=== PATIENT | male | born 1955 | race African-American/Black ===

== ENCOUNTER 2017-07-08 09:33 | Inpatient (IN) | payer BC ==
[~2017-07-08] VITALS: Ht 182.9 cm; Wt 148.3 kg
[~2017-07-08 09:33] MED LIST: AMLO5TAB4 PO; ATEN50TA PO
[2017-07-08] MEDS ORDERED: DEXTROSE 50% WATER 50ML SYRINGE IV ONE ×2 (09:46→10:00)
[2017-07-08 10:07] LABS: HEMATOCRIT. 36.5 % (42.0-52.0); HEMOGLOBIN. 11.5 g/dL (14.0-18.0); MEAN PLATELET VOLUME 9.6 fl (7.4-10.4); PLATELET 243 x1000/uL (130-400); RED CELL DISTRIBUTION WIDTH 15.6 % (11.6-14.6)
[2017-07-08 10:13] LABS: CHLORIDE 102 mEq/L (98-107)
[2017-07-08 10:16] LABS: PARTIAL THROMBOPLASTIN TIME 25.6 sec (23.4-31.0); PROTHROMBIN TIME 10.4 sec (9.4-11.6)
[2017-07-08 10:18] LABS: CARBON DIOXIDE 30 mEq/L (21-32)
[2017-07-08 10:24] LABS: TROPONIN I 0.05 ng/mL (0.00-0.04)
[2017-07-08 10:38] LABS: PLATELET ESTIMATE NORMAL
[2017-07-08 10:56] LABS: HEMATOCRIT 34.8 % (42.0-52.0); HEMOGLOBIN 10.9 g/dL (14.0-18.0); MEAN CORPUSCULAR HEMOGLOBIN 27.7 pg (28.0-32.0); MEAN CORPUSCULAR VOLUME 87.8 fL (80.0-94.0); PLATELET 222 x1000/uL (130-400); RED BLOOD CELL COUNT 3.96 mill/uL (4.7-6.1)
[2017-07-08] MEDS ORDERED: DEXTROSE 50% WATER 50ML SYRINGE IV PRN (11:15)
[2017-07-08] MEDS: BLOOD SUGAR DIAGNOSTIC STRIP TEST SCH ×3 (13:24→20:12)
[2017-07-08] MEDS: INSULIN LISPRO 100 UNITS/ML SUBCUT SCH ×3 (13:24→20:13)
[2017-07-08] MEDS: CLONIDINE 0.1MG TABLET PO SCH ×2 (13:24→18:16)
[2017-07-08 13:45] LABS: CLARITY URINE CLEAR (CLEAR); COLOR URINE YELLOW (YELLOW); GLUCOSE URINE 2+ (NEGATIVE); KETONES URINE NEGATIVE (NEGATIVE); LEUKOCYTE ESTERASE URINE 1+ (NEGATIVE); NITRITE URINE NEGATIVE (NEGATIVE); OCCULT BLOOD URINE 2+ (NEGATIVE); PROTEIN URINE 4+ (NEGATIVE); SPECIFIC GRAVITY URINE 1.023 (1.005-1.030); UROBILINOGEN URINE 0.2 E.U./dL (0.2-1.0)
[2017-07-08 14:30] VITALS: BP 152/106
[2017-07-08] MEDS: POLYETHYLENE GLYCOL 3350 (17GM) 1 DOSE PACK PO SCH (16:11)
[2017-07-08] MEDS: SEVELAMER CARBONATE 800 MG TABLET PO SCH ×2 (16:11→18:16)
[2017-07-08] MEDS ORDERED: HEPARIN SODIUM 1,000 UNIT/1ML VIAL IV NR (17:45)
[2017-07-08] MEDS: INSULIN NPH (HUMULIN-N) 100 UNITS/ML 3ML VIAL SUBCUT SCH (17:50)
[2017-07-08] MEDS: BRIMONIDINE 0.2% OPHTH DROPS 5ML BOTHEYE SCH (18:17)
[2017-07-08] MEDS ORDERED: VANCOMYCIN 1 G PREMIX 200 ML IV SCH (19:15)
[2017-07-08] MEDS ORDERED: NPH,100V SQ (19:37)
[2017-07-08] MEDS ORDERED: SEVE800T8 PO (19:37)
[2017-07-08] MEDS ORDERED: CLON0.1T PO (19:37)
[2017-07-08 20:00] VITALS: BP 143/63
[2017-07-08] MEDS ORDERED: ENOXAPARIN 40MG/0.4ML SYR SUBCUT SCH (20:00)
[2017-07-08] MEDS ORDERED: MONTELUKAST SODIUM 10MG TABLET PO SCH (21:00)
[2017-07-08] MEDS ORDERED: ATORVASTATIN CALCIUM 40MG TABLET PO SCH (21:00)
[2017-07-08] MEDS: AMLODIPINE 5MG TABLET PO SCH (21:47)
[2017-07-08] MEDS: PIPERACILLIN/TAZ 3.375G PREMIX 50 ML IV SCH (21:48)
[2017-07-08] MEDS ORDERED: VANCOMYCIN 2,000 MG in DEXT 5% WATER 500 ML IV NR (23:00)
[2017-07-09] VITALS (7 sets, daily range): BP systolic 112–180; BP diastolic 44–75
[2017-07-09] MEDS: ALBUTEROL (0.083%) 2.5MG/3ML NEB HHN SCH ×4 (00:13→16:12)
[2017-07-09] MEDS: PIPERACILLIN/TAZ 3.375G PREMIX 50 ML IV SCH (05:37)
[2017-07-09] MEDS: CLONIDINE 0.1MG TABLET PO SCH ×2 (06:00→13:38)
[2017-07-09] MEDS: BLOOD SUGAR DIAGNOSTIC STRIP TEST SCH ×3 (06:54→17:19)
[2017-07-09 07:07] LABS: BASOPHILS % 0.8 % (0.0-2.0); EOSINOPHILS % 3.4 % (0.0-5.0); HEMATOCRIT. 31.5 % (42.0-52.0); LYMPHOCYTES % 14.4 % (20.0-50.0); MEAN CORPUSCULAR HEMOGLOBIN 28.1 pg (28.0-32.0); MEAN CORPUSCULAR VOLUME 88.1 fL (80.0-94.0); MEAN PLATELET VOLUME 9.8 fl (7.4-10.4); MONOCYTES % 10.5 % (2.0-8.0); NEUTROPHILS % 70.9 % (40.0-76.0); PLATELET 190 x1000/uL (130-400); RED BLOOD CELL COUNT 3.57 mill/uL (4.7-6.1); RED CELL DISTRIBUTION WIDTH 15.3 % (11.6-14.6)
[2017-07-09 07:54] LABS: PHOSPHORUS 3.6 mg/dL (2.5-4.9)
[2017-07-09] MEDS: INSULIN LISPRO 100 UNITS/ML SUBCUT SCH ×3 (08:20→17:51)
[2017-07-09] MEDS: SEVELAMER CARBONATE 800 MG TABLET PO SCH ×3 (08:26→17:45)
[2017-07-09] MEDS: AMLODIPINE 5MG TABLET PO SCH (08:27)
[2017-07-09] MEDS: POLYETHYLENE GLYCOL 3350 (17GM) 1 DOSE PACK PO SCH (08:27)
[2017-07-09] MEDS: BRIMONIDINE 0.2% OPHTH DROPS 5ML BOTHEYE SCH ×2 (08:28→17:45)
[2017-07-09] MEDS ORDERED: SERTRALINE HCL 100MG TABLET PO SCH (09:00)
[2017-07-09] MEDS ORDERED: ASPIRIN 81MG TABLET PO SCH (09:00)
[2017-07-09] MEDS ORDERED: FLUTICASONE PROPIONATE 50MCG/SPRAY BOTTLE BOTHNSTRLS SCH (09:00)
[2017-07-09] MEDS: INSULIN NPH (HUMULIN-N) 100 UNITS/ML 3ML VIAL SUBCUT SCH ×2 (09:48→17:52)
[2017-07-09] MEDS ORDERED: PIPERACILLIN/TAZ 2.25G PREMIX 50 ML IV SCH (14:00)
== END 2017-07-09 20:30 | disposition short-term general hospital (02) | DRG 871 ==
LOC: ER 09:47 → 6WST 11:19
PROVIDERS: ADMIT Internal Medicine Critical Care Medicine; ATTEND Internal Medicine Critical Care Medicine
PROC: 5A1D00Z (ICD-10-PCS; principal; 2017-07-08)
DX: A41.9 Sepsis, unspecified organism (principal); E43 Unspecified severe protein-calorie malnutrition; N18.6 End stage renal disease; E11.22 Type 2 diabetes mellitus with diabetic chronic kidney disease; I12.0 Hypertensive chronic kidney disease with stage 5 chronic kidney disease or end stage renal disease; D63.1 Anemia in chronic kidney disease; S40.021A Contusion of right upper arm, initial encounter; N25.81 Secondary hyperparathyroidism of renal origin; N39.0 Urinary tract infection, site not specified; Z68.42 Body mass index [BMI] 45.0-49.9, adult; L97.829 Non-pressure chronic ulcer of other part of left lower leg with unspecified severity; L97.819 Non-pressure chronic ulcer of other part of right lower leg with unspecified severity; E11.649 Type 2 diabetes mellitus with hypoglycemia without coma; E66.01 Morbid (severe) obesity due to excess calories; E11.65 Type 2 diabetes mellitus with hyperglycemia; E78.5 Hyperlipidemia, unspecified; E83.39 Other disorders of phosphorus metabolism; I25.10 Atherosclerotic heart disease of native coronary artery without angina pectoris; J44.9 Chronic obstructive pulmonary disease, unspecified; S80.812A Abrasion, left lower leg, initial encounter; S80.811A Abrasion, right lower leg, initial encounter; K59.00 Constipation, unspecified; N40.1 Benign prostatic hyperplasia with lower urinary tract symptoms; R33.8 Other retention of urine; W19.XXXA Unspecified fall, initial encounter; L98.419 Non-pressure chronic ulcer of buttock with unspecified severity; Z96.1 Presence of intraocular lens; Y93.89 Activity, other specified; Y92.89 Other specified places as the place of occurrence of the external cause; Z99.2 Dependence on renal dialysis; Z79.899 Other long term (current) drug therapy; Z79.4 Long term (current) use of insulin; Z98.41 Cataract extraction status, right eye; Y99.8 Other external cause status
CPT/HCPCS: 36415; 71010; 80048; 80053; 81001; 82962; 83036; 83690; 83735; 84100; 84484; 85025; 85027; 85610; 85730; 87040; 87070; 87086; 87205; 93005; 94003; 94640; 94664; 96374; 96375; 99285; A6261; C1893; J1644; J1650; J1815; J2543; J3370; J7030; J7050; J7060; J7611

== ENCOUNTER 2017-09-05 08:40 | Inpatient (IN) | payer BC ==
[~2017-09-05] VITALS: Ht 180.3 cm; Wt 147.9 kg
[~2017-09-05 08:40] MED LIST changes: -AMLO5TAB4 PO; -ATEN50TA PO; +CLON0.1T PO; +NPH,100V SQ; +SEVE800T8 PO
[2017-09-05 09:27] LABS: HEMOGLOBIN. 9.1 g/dL (14.0-18.0); MEAN CORPUSCULAR HEMOGLOBIN 28.9 pg (28.0-32.0); MEAN CORPUSCULAR VOLUME 92.6 fL (80.0-94.0); PLATELET 276 x1000/uL (130-400); RED BLOOD CELL COUNT 3.14 mill/uL (4.7-6.1); RED CELL DISTRIBUTION WIDTH 16.6 % (11.6-14.6)
[2017-09-05 09:34] LABS: PROTHROMBIN TIME 10.9 sec (9.4-11.6)
[2017-09-05 09:43] LABS: CARBON DIOXIDE 25 mEq/L (21-32); CHLORIDE 102 mEq/L (98-107); TROPONIN I 0.09 ng/mL (0.00-0.04)
[2017-09-05 10:10] LABS: PLATELET ESTIMATE NORMAL
[2017-09-05] MEDS ORDERED: CALCIUM CHLORIDE 1GM/10ML SYR IV ONE (10:15)
[2017-09-05] MEDS ORDERED: ALBUTEROL (0.083%) 2.5MG/3ML NEB HHN ONE (10:15)
[2017-09-05] MEDS ORDERED: SODIUM POLYSTYRENE SULFONATE 15 G/60 ML BOT PO ONE (10:15)
[2017-09-05] MEDS ORDERED: INSULIN REGULAR (HUMULIN R) 300UNITS/3ML IV ONE (10:15)
[2017-09-05] MEDS ORDERED: DEXTROSE 50% WATER 50ML SYRINGE IV ONE (10:15)
[2017-09-05] MEDS ORDERED: SODIUM BICARBONATE 8.4% 1 MEQ/ML 50ML SYR IV ONE (10:15)
[2017-09-05] MEDS ORDERED: LEVOFLOXACIN 750MG PREMIX 150 ML IV ONE (11:45)
[2017-09-05] MEDS ORDERED: NITROGLYCERIN 0.4MG TABLET SL SL PRN (11:45)
[2017-09-05 13:30] VITALS: BP 158/72
[2017-09-05 14:00] VITALS: BP 159/76
[2017-09-05] MEDS ORDERED: DEXTROSE 50% WATER 50ML SYRINGE IV PRN (15:00)
[2017-09-05 16:00] VITALS: BP 146/72
[2017-09-05 18:00] VITALS: BP 160/48
[2017-09-05] MEDS: INSULIN LISPRO 100 UNITS/ML SUBCUT SCH ×2 (18:00→21:58)
[2017-09-05] MEDS: BLOOD SUGAR DIAGNOSTIC STRIP TEST SCH ×2 (18:26→21:52)
[2017-09-05] MEDS: SEVELAMER CARBONATE 800 MG TABLET PO SCH (18:32)
[2017-09-05 20:00] VITALS: BP 161/56
[2017-09-05] MEDS ORDERED: EPOETIN ALFA 10000UNITS/ML VIAL SUBCUT SCH (21:00)
[2017-09-05 22:00] VITALS: BP 152/62
[2017-09-05] MEDS: CLONIDINE 0.1MG TABLET PO SCH ×2 (22:08→22:09)
[2017-09-06] VITALS (15 sets, daily range): BP systolic 110–183; BP diastolic 50–123
[2017-09-06] MEDS: CLONIDINE 0.1MG TABLET PO SCH ×6 (05:45→22:21)
[2017-09-06 06:34] LABS: BASOPHILS % 1.6 % (0.0-2.0); EOSINOPHILS % 6.2 % (0.0-5.0); HEMATOCRIT. 27.6 % (42.0-52.0); LYMPHOCYTES % 13.2 % (20.0-50.0); MEAN CORPUSCULAR HEMOGLOBIN 29.6 pg (28.0-32.0); MEAN CORPUSCULAR VOLUME 91.1 fL (80.0-94.0); MONOCYTES % 12.1 % (2.0-8.0); NEUTROPHILS % 66.9 % (40.0-76.0); PLATELET 235 x1000/uL (130-400); RED BLOOD CELL COUNT 3.03 mill/uL (4.7-6.1); RED CELL DISTRIBUTION WIDTH 16.5 % (11.6-14.6)
[2017-09-06 07:04] LABS: PHOSPHORUS 6.3 mg/dL (2.5-4.9)
[2017-09-06] MEDS: INSULIN LISPRO 100 UNITS/ML SUBCUT SCH ×4 (08:00→21:00)
[2017-09-06] MEDS ORDERED: SEVELAMER CARBONATE 800 MG TABLET PO SCH (08:00)
[2017-09-06] MEDS: SEVELAMER CARBONATE 800 MG TABLET PO SCH ×3 (08:18→18:57)
[2017-09-06] MEDS: BLOOD SUGAR DIAGNOSTIC STRIP TEST SCH ×4 (08:19→21:00)
[2017-09-06] MEDS: INSULIN NPH (HUMULIN-N) 100 UNITS/ML 3ML VIAL SUBCUT SCH ×2 (08:45→17:00)
[2017-09-06] MEDS ORDERED: GUAIFENESIN/DM 600MG/30MG ER TAB 12HR PO PRN (10:00)
[2017-09-06] MEDS ORDERED: AZITHROMYCIN 500 MG in DEXT 5% WATER 250 ML IV SCH (14:00)
[2017-09-06] MEDS: SILVER SULFADIAZINE 1% CREAM 50GM TOP SCH (22:04)
[2017-09-07] VITALS (13 sets, daily range): BP systolic 135–177; BP diastolic 61–99
[2017-09-07] MEDS: CLONIDINE 0.1MG TABLET PO SCH ×2 (05:58)
[2017-09-07 06:58] LABS: BASOPHILS % 1.7 % (0.0-2.0); EOSINOPHILS % 10.4 % (0.0-5.0); HEMATOCRIT. 29.5 % (42.0-52.0); HEMOGLOBIN. 9.6 g/dL (14.0-18.0); MEAN CORPUSCULAR HEMOGLOBIN 29.4 pg (28.0-32.0); MEAN CORPUSCULAR VOLUME 90.7 fL (80.0-94.0); MEAN PLATELET VOLUME 8.9 fl (7.4-10.4); MONOCYTES % 11.7 % (2.0-8.0); NEUTROPHILS % 61.2 % (40.0-76.0); PLATELET 246 x1000/uL (130-400); RED BLOOD CELL COUNT 3.25 mill/uL (4.7-6.1); RED CELL DISTRIBUTION WIDTH 16.3 % (11.6-14.6)
[2017-09-07 07:30] LABS: PHOSPHORUS 6.1 mg/dL (2.5-4.9)
[2017-09-07] MEDS: BLOOD SUGAR DIAGNOSTIC STRIP TEST SCH ×2 (07:30→12:47)
[2017-09-07] MEDS: INSULIN LISPRO 100 UNITS/ML SUBCUT SCH ×2 (08:00→12:47)
[2017-09-07] MEDS: SEVELAMER CARBONATE 800 MG TABLET PO SCH ×2 (09:00→13:18)
[2017-09-07] MEDS: SILVER SULFADIAZINE 1% CREAM 50GM TOP SCH (09:00)
[2017-09-07] MEDS: INSULIN NPH (HUMULIN-N) 100 UNITS/ML 3ML VIAL SUBCUT SCH (09:03)
[2017-09-07] MEDS ORDERED: LEVOFLOXACIN 500MG PREMIX 100 ML IV SCH (10:00)
[2017-09-07] MEDS ORDERED: AZIT250T6 PO (14:23)
[2017-09-07] MEDS ORDERED: LEVO500T2 PO (14:23)
[2017-09-07] MEDS ORDERED: HYDR-4134 PO (14:24)
[2017-09-07] MEDS ORDERED: NPH,100V SQ (14:28)
[2017-09-07] MEDS ORDERED: FLUT1DIS3 IH (14:29)
[2017-09-07] MEDS ORDERED: ALBU90AE IH (14:31)
[2017-09-07] MEDS ORDERED: ATOR-2 PO (14:32)
[2017-09-07] MEDS ORDERED: SILV20CR13 TP (14:32)
[2017-09-07] MEDS ORDERED: SERT100T PO (14:32)
[2017-09-07] MEDS ORDERED: CLONIDINE 0.2MG TABLET PO SCH (21:00)
== END 2017-09-07 14:50 | disposition home or self-care (01) | DRG 291 ==
LOC: ER 08:49 → EDBEDREQ 10:05 → EDBEDREQSVC 10:05 → 5EST 11:45 → EDBEDREQ 11:47 → ENRESERV 11:52
PROVIDERS: ADMIT Internal Medicine Critical Care Medicine; ATTEND Internal Medicine Critical Care Medicine
PROC: 5A1D70Z Performance of Urinary Filtration, Intermittent, Less than 6 Hours Per Day (ICD-10-PCS; principal; 2017-09-07)
DX: I13.2 Hypertensive heart and chronic kidney disease with heart failure and with stage 5 chronic kidney disease, or end stage renal disease (principal); J18.9 Pneumonia, unspecified organism; J96.91 Respiratory failure, unspecified with hypoxia; G93.40 Encephalopathy, unspecified; E11.22 Type 2 diabetes mellitus with diabetic chronic kidney disease; E11.649 Type 2 diabetes mellitus with hypoglycemia without coma; I95.3 Hypotension of hemodialysis; E87.5 Hyperkalemia; N18.6 End stage renal disease; J44.0 Chronic obstructive pulmonary disease with (acute) lower respiratory infection; I50.9 Heart failure, unspecified; D64.9 Anemia, unspecified; E78.5 Hyperlipidemia, unspecified; I25.10 Atherosclerotic heart disease of native coronary artery without angina pectoris; N40.0 Benign prostatic hyperplasia without lower urinary tract symptoms; Z79.4 Long term (current) use of insulin; Z99.2 Dependence on renal dialysis; Z82.49 Family history of ischemic heart disease and other diseases of the circulatory system; Z83.3 Family history of diabetes mellitus
CPT/HCPCS: 36415; 70450; 71010; 80048; 80053; 82962; 83036; 83540; 83550; 83735; 83880; 84100; 84132; 84484; 85025; 85610; 87040; 93005; 94644; 96365; 96375; 99291; C1893; J0456; J0885; J1815; J1956; J3490; J7030; J7060; J7611

== ENCOUNTER 2017-11-21 06:08 | Inpatient (IN) | payer BC ==
[~2017-11-21] VITALS: Ht 177.8 cm; Wt 157.2 kg
[~2017-11-21 06:08] MED LIST changes: +ALBU90AE IH; +ATOR-2 PO; +AZIT250T12 PO; +FLUT1DIS3 IH; +HYDR-4134 PO; +LEVO500T2 PO; +SERT100T PO; +SILV20CR13 TP
[2017-11-21] MEDS ORDERED: NITROGLYCERIN OINT 1GM/INCH UDPKT TD ONE (06:15)
[2017-11-21] MEDS ORDERED: ASPIRIN 81MG TABLET PO ONE (06:15)
[2017-11-21] MEDS ORDERED: FUROSEMIDE 40MG/4ML VIAL IV ONE (06:15)
[2017-11-21] MEDS ORDERED: IPRATROPIUM/ALBUTEROL 0.5-3(2.5)MG/3ML NEB HHN ONE ×2 (06:15→09:45)
[2017-11-21 06:59] LABS: HEMATOCRIT. 38.3 % (42.0-52.0); HEMOGLOBIN. 11.8 g/dL (14.0-18.0); MEAN CORPUSCULAR HEMOGLOBIN 26.9 pg (28.0-32.0); PLATELET 239 x1000/uL (130-400); RED BLOOD CELL COUNT 4.41 mill/uL (4.7-6.1); RED CELL DISTRIBUTION WIDTH 16.6 % (11.6-14.6)
[2017-11-21 07:07] LABS: PROTHROMBIN TIME 10.7 sec (9.4-11.6)
[2017-11-21 07:14] LABS: CHLORIDE 94 mEq/L (98-107); TROPONIN I 0.15 ng/mL (0.00-0.04)
[2017-11-21 08:30] LABS: PLATELET ESTIMATE NORMAL
[2017-11-21] MEDS ORDERED: DEXTROSE 50% WATER 50ML SYRINGE IV ONE (09:00)
[2017-11-21] MEDS ORDERED: INSULIN REGULAR (HUMULIN R) UD 100 UNITS/ML SYR IV ONE (09:00)
[2017-11-21] MEDS ORDERED: SODIUM POLYSTYRENE SULFONATE 15 G/60 ML BOT PO ONE (09:00)
[2017-11-21] MEDS ORDERED: CLONIDINE 0.1MG TABLET PO ONE (09:28)
[2017-11-21] MEDS ORDERED: INSULIN REGULAR (HUMULIN R) 300UNITS/3ML IV ONE (09:30)
[2017-11-21] MEDS ORDERED: ALBUTEROL (0.083%) 2.5MG/3ML NEB ONE (09:42)
[2017-11-21] MEDS ORDERED: ACETAMINOPHEN 325MG TABLET PO PRN (11:00)
[2017-11-21] MEDS ORDERED: CLONIDINE 0.1MG TABLET PO PRN (11:00)
[2017-11-21 11:17] LABS: BG BASE EXCESS -5.4 mmol/L (-2.0-2.0); BG BILEVEL POS AIRWAY PRESSURE 15/5; BG CARBOXYHEMOGLOBIN 0.6 % (0.5-1.5); BG DEOXYHEMOGLOBIN 1.3 % (0.0-5.0); BG FRACTION INSPIRED OXYGEN 50; BG HCO3 ACT 21.3 mmol/L (22.0-26.0); BG OXYGEN SATURATION 98.7 % (92.0-98.5); BG OXYHEMOGLOBIN 98.1 % (94.0-97.0); BG PCO2 46.7 mmHg (35.0-45.0); BG PH 7.277 (7.350-7.450); BG PO2 192.6 mmHg (75.0-100.0); BG SAMPLE SITE RIGHT RADIAL; BG TOTAL HEMOGLOBIN 11.6 g/dL (12.0-18.0); BG VENT MODE MASK - BIPAP; BG VENT RATE 14 set
[2017-11-21 12:00] VITALS: BP 159/64
[2017-11-21] MEDS: IPRATROPIUM/ALBUTEROL 0.5-3(2.5)MG/3ML NEB INH PRN ×2 (12:53→23:30)
[2017-11-21] MEDS: BUDESONIDE 0.5MG/2ML NEB HHN SCH ×2 (12:53→20:03)
[2017-11-21] MEDS ORDERED: SEVELAMER CARBONATE 800 MG TABLET PO SCH (13:00)
[2017-11-21] MEDS: HYDRALAZINE HCL 50MG TABLET PO SCH ×2 (13:00→21:44)
[2017-11-21] MEDS: CLONIDINE 0.1MG TABLET PO SCH ×2 (13:45→21:44)
[2017-11-21 14:00] VITALS: BP 165/68
[2017-11-21] MEDS ORDERED: CLONIDINE 0.1MG TABLET PO SCH (14:00)
[2017-11-21 16:00] VITALS: BP 161/73
[2017-11-21] MEDS: SEVELAMER CARBONATE 800 MG TABLET PO SCH ×2 (16:22→18:45)
[2017-11-21] MEDS: FAMOTIDINE 20MG TABLET PO SCH (16:22)
[2017-11-21] MEDS: SODIUM CHLORIDE 0.9% INJ 3ML FLUSH IVF SCH ×2 (16:24→21:44)
[2017-11-21] MEDS: ENOXAPARIN 40MG/0.4ML SYR SUBCUT SCH (16:24)
[2017-11-21 18:00] VITALS: BP 167/75
[2017-11-21] MEDS: INSULIN NPH (HUMULIN-N) 100 UNITS/ML 3ML VIAL SUBCUT SCH (18:00)
[2017-11-21 20:00] VITALS: BP 170/63
[2017-11-21] MEDS ORDERED: ATORVASTATIN CALCIUM 40MG TABLET PO SCH (21:00)
[2017-11-21] MEDS ORDERED: DEXTROSE 50% WATER 50ML SYRINGE IV PRN (21:15)
[2017-11-21] MEDS: BLOOD SUGAR DIAGNOSTIC STRIP TEST SCH (21:28)
[2017-11-21] MEDS: ATORVASTATIN CALCIUM 40MG TABLET PO SCH (21:43)
[2017-11-21] MEDS: INSULIN LISPRO 100 UNITS/ML SUBCUT SCH (21:45)
[2017-11-22] VITALS (7 sets, daily range): BP systolic 126–186; BP diastolic 60–105
[2017-11-22] MEDS: HYDRALAZINE HCL 50MG TABLET PO SCH ×4 (05:26→22:30)
[2017-11-22] MEDS: SODIUM CHLORIDE 0.9% INJ 3ML FLUSH IVF SCH ×3 (05:27→22:31)
[2017-11-22] MEDS: CLONIDINE 0.1MG TABLET PO SCH ×4 (05:27→22:30)
[2017-11-22] MEDS: BLOOD SUGAR DIAGNOSTIC STRIP TEST SCH ×4 (07:30→22:30)
[2017-11-22] MEDS: BUDESONIDE 0.5MG/2ML NEB HHN SCH ×2 (08:38→20:50)
[2017-11-22] MEDS: SEVELAMER CARBONATE 800 MG TABLET PO SCH ×3 (08:48→18:04)
[2017-11-22] MEDS: INSULIN NPH (HUMULIN-N) 100 UNITS/ML 3ML VIAL SUBCUT SCH ×2 (08:48→18:06)
[2017-11-22] MEDS: IPRATROPIUM/ALBUTEROL 0.5-3(2.5)MG/3ML NEB INH PRN (08:49)
[2017-11-22] MEDS: FAMOTIDINE 20MG TABLET PO SCH (08:49)
[2017-11-22] MEDS: ENOXAPARIN 40MG/0.4ML SYR SUBCUT SCH (08:50)
[2017-11-22] MEDS: INSULIN LISPRO 100 UNITS/ML SUBCUT SCH ×4 (08:52→22:46)
[2017-11-22] MEDS ORDERED: SILVER SULFADIAZINE 1% CREAM 25GM TOP SCH (09:00)
[2017-11-22] MEDS ORDERED: FOLIC ACID/VITAMIN B COMP W-C TABLET PO SCH (09:00)
[2017-11-22] MEDS ORDERED: SERTRALINE HCL 100MG TABLET PO SCH ×2 (09:00)
[2017-11-22 10:03] LABS: BASOPHILS % 1.2 % (0.0-2.0); EOSINOPHILS % 1.2 % (0.0-5.0); HEMATOCRIT 37.2 % (42.0-52.0); HEMATOCRIT. 37.2 % (42.0-52.0); LYMPHOCYTES % 9.5 % (20.0-50.0); MEAN CORPUSCULAR HEMOGLOBIN 27.6 pg (28.0-32.0); MEAN CORPUSCULAR VOLUME 85.8 fL (80.0-94.0); MEAN PLATELET VOLUME 9.1 fl (7.4-10.4); MONOCYTES % 14.5 % (2.0-8.0); NEUTROPHILS % 73.6 % (40.0-76.0); PLATELET 226 x1000/uL (130-400); RED BLOOD CELL COUNT 4.34 mill/uL (4.7-6.1); RED CELL DISTRIBUTION WIDTH 16.7 % (11.6-14.6)
[2017-11-22 10:16] LABS: BG BASE EXCESS -2.9 mmol/L (-2.0-2.0); BG CARBOXYHEMOGLOBIN 0.7 % (0.5-1.5); BG DEOXYHEMOGLOBIN 7.1 % (0.0-5.0); BG FRACTION INSPIRED OXYGEN 36; BG HCO3 ACT 22.5 mmol/L (22.0-26.0); BG METHEMOGLOBIN 0.3 % (0.0-1.5); BG OXYGEN SATURATION 92.8 % (92.0-98.5); BG OXYHEMOGLOBIN 91.9 % (94.0-97.0); BG PCO2 41.6 mmHg (35.0-45.0); BG PH 7.351 (7.350-7.450); BG PO2 68.6 mmHg (75.0-100.0); BG SAMPLE SITE RIGHT BRACHIAL; BG TOTAL HEMOGLOBIN 12.1 g/dL (12.0-18.0); BG VENT MODE NASAL CANNULA
[2017-11-22 10:23] LABS: CHLORIDE 100 mEq/L (98-107); PHOSPHORUS 4.6 mg/dL (2.5-4.9)
[2017-11-22] MEDS ORDERED: FUROSEMIDE 100MG/10ML VIAL IVP NR (16:30)
[2017-11-22] MEDS ORDERED: CEPHALEXIN 500MG CAPSULE PO SCH (17:00)
[2017-11-22] MEDS: CEPHALEXIN 250MG CAPSULE PO SCH ×2 (17:00→22:30)
[2017-11-22] MEDS: ATORVASTATIN CALCIUM 40MG TABLET PO SCH (22:30)
[2017-11-23] VITALS: BP 155/84
[2017-11-23 00:29] VITALS: BP 153/86
[2017-11-23 02:00] VITALS: BP 148/88
== END 2017-11-23 02:30 | disposition short-term general hospital (02) | DRG 291 ==
LOC: ER 06:09 → 5EST 08:04 → ENRESERV 08:37 → CANRESERV 08:37 → EDBEDREQ 09:54 → EDBEDREQSVC 09:54 → ENRESERV 10:33
PROVIDERS: ADMIT Ophthalmology; ATTEND Ophthalmology
PROC: 5A09357 Assistance with Respiratory Ventilation, Less than 24 Consecutive Hours, Continuous Positive Airway Pressure (ICD-10-PCS; principal; 2017-11-21)
PROC: 5A1D70Z Performance of Urinary Filtration, Intermittent, Less than 6 Hours Per Day (ICD-10-PCS; 2017-11-21)
PROC: 5A1D70Z Performance of Urinary Filtration, Intermittent, Less than 6 Hours Per Day (ICD-10-PCS; 2017-11-22)
DX: I13.2 Hypertensive heart and chronic kidney disease with heart failure and with stage 5 chronic kidney disease, or end stage renal disease (principal); J96.01 Acute respiratory failure with hypoxia; E87.2 Acidosis; N18.6 End stage renal disease; I50.41 Acute combined systolic (congestive) and diastolic (congestive) heart failure; E66.2 Morbid (severe) obesity with alveolar hypoventilation; L97.909 Non-pressure chronic ulcer of unspecified part of unspecified lower leg with unspecified severity; E46 Unspecified protein-calorie malnutrition; L03.119 Cellulitis of unspecified part of limb; Z68.42 Body mass index [BMI] 45.0-49.9, adult; I87.2 Venous insufficiency (chronic) (peripheral); D64.9 Anemia, unspecified; E21.3 Hyperparathyroidism, unspecified; E83.39 Other disorders of phosphorus metabolism; E11.22 Type 2 diabetes mellitus with diabetic chronic kidney disease; E11.51 Type 2 diabetes mellitus with diabetic peripheral angiopathy without gangrene; E11.622 Type 2 diabetes mellitus with other skin ulcer; E78.5 Hyperlipidemia, unspecified; E87.5 Hyperkalemia; I25.10 Atherosclerotic heart disease of native coronary artery without angina pectoris; I45.81 Long QT syndrome; J44.9 Chronic obstructive pulmonary disease, unspecified; N40.1 Benign prostatic hyperplasia with lower urinary tract symptoms; Z79.4 Long term (current) use of insulin; Z82.49 Family history of ischemic heart disease and other diseases of the circulatory system; Z99.2 Dependence on renal dialysis; Z83.3 Family history of diabetes mellitus; Z87.01 Personal history of pneumonia (recurrent); Z91.048 Other nonmedicinal substance allergy status; Z79.899 Other long term (current) drug therapy; Z79.51 Long term (current) use of inhaled steroids
CPT/HCPCS: 36415; 36600; 71045; 80053; 82375; 82805; 82962; 83735; 84100; 84443; 84484; 85025; 85027; 85610; 85730; 87040; 87804; 93005; 94640; 94660; 94664; 96374; 96375; 97162; 99285; J1650; J1815; J1940; J7030; J7611; J7620; J7626